=== PATIENT | male | born 1995 | race Caucasian/White ===

== ENCOUNTER 2016-11-25 18:50 | Emergency (ER) | payer OTHER ==
[~2016-11-25] VITALS: Ht 170.2 cm; Wt 81.7 kg
[~2016-11-25 18:50] MED LIST: IBUPROFEN 600600 M1 PO; KEFLEX500 MG PO
[2016-11-25] MEDS ORDERED: MOBIC15 MG PO (19:58)
[2016-11-25] MEDS ORDERED: CRUTCHES MISCELL (19:59)
[2016-11-25 20:25] VITALS: BP 139/99
== END 2016-11-25 20:26 | disposition home or self-care (01) ==
LOC: ER 18:50
DX: S93.602A Unspecified sprain of left foot, initial encounter (principal); J45.909 Unspecified asthma, uncomplicated; F10.99 Alcohol use, unspecified with unspecified alcohol-induced disorder; X58.XXXA Exposure to other specified factors, initial encounter; Y93.67 Activity, basketball; Y92.310 Basketball court as the place of occurrence of the external cause; Y99.8 Other external cause status

== ENCOUNTER 2018-01-09 19:01 | Emergency (ER) | payer BC, OTHER ==
[~2018-01-09] VITALS: Ht 170.2 cm; Wt 90.7 kg
[~2018-01-09 19:01] MED LIST changes: +CRUTCHES MISCELL; +MOBIC15 MG PO
[2018-01-09] MEDS ORDERED: NOHOMEMEDICATIONS (19:12)
[2018-01-09 19:17] LABS: URINE BILIRUBIN NEGATIVE (Negative); URINE BLOOD 2+ (Negative); URINE CLARITY CLEAR; URINE COLOR YELLOW; URINE GLUCOSE-RANDOM* NEGATIVE (Negative); URINE KETONES NEGATIVE (Negative); URINE LEUKOCYTES-REFLEX NEGATIVE (Negative); URINE NITRITE-REFLEX NEGATIVE (Negative); URINE PROTEIN (DIPSTICK) NEGATIVE (Negative); URINE SPECIFIC GRAVITY 1.025 (1.005-1.035)
[2018-01-09 19:25] LABS: BACTERIA-REFLEX None Seen /HPF (None Seen); CASTS None Seen /LPF (None Seen); CRYSTALS None Seen /LPF (None Seen); MUCUS >6 Heavy strn/LPF (None Seen); SQUAMOUS None Seen /LPF (0-3); URINE RBC >20 Many /HPF (0-2); URINE WBC-REFLEX 0-5 Rare /HPF (0-5)
[2018-01-09 19:44] LABS: HEMATOCRIT 42.2 % (42.0-52.0); HEMOGLOBIN 14.8 gm/dL (14.0-18.0); MCH 32.4 pg (26.0-34.0); MCHC 35.2 g/dL (28.0-37.0); MCV 92.2 fL (80.0-100.0); PLATELET COUNT 386 thou/uL (150-400); RBC 4.57 mil/uL (4.50-6.00); RDW 12.1 % (10.5-14.5); WBC 9.8 thou/uL (4.0-11.0)
[2018-01-09 19:56] LABS: CALCIUM 9.4 mg/dL (8.5-10.1); CREATININE 1.1 mg/dL (0.7-1.3); POTASSIUM 3.8 mmol/L (3.5-5.1)
[2018-01-09 20:12] LABS: ABSOLUTE NEUTROPHILS 5.3 thou/uL (1.4-8.2)
[2018-01-09] MEDS ORDERED: NORCO 5-325 TA1 EACH PO (22:13)
[2018-01-09] MEDS ORDERED: IBUPROFEN 600600 M1 PO (22:13)
[2018-01-09] MEDS ORDERED: ZOFRAN ODT4 MG PO (22:13)
[2018-01-09 22:46] VITALS: BP 120/80
== END 2018-01-09 23:10 | disposition home or self-care (01) ==
LOC: ER 19:01
PROVIDERS: Emergency Medicine; Nurse Practitioner Family
DX: N20.0 Calculus of kidney (principal); R11.2 Nausea with vomiting, unspecified; J45.909 Unspecified asthma, uncomplicated